=== PATIENT | female | born 1960 | race Caucasian/White ===

== ENCOUNTER → 2017-03-31 | Day surgery (SDC) | payer OTHER ==
[~2017-03-31] VITALS: Ht 170.2 cm; Wt 99.8 kg
[~2017-03-31] MED LIST: BENADRYL25 MG PO; FLOMAX0.4 M1 PO; ROBAXIN500 M1 PO; TRAMADOL HCL50 M1 PO; TYLENOL EXTRA500 M2 PO
--- NOTE | 2017-03-31 16:04 | Operative Report ---
Operative/Inv Procedure Report Surgery Date: 03/31/17 Name of Procedure: right ureteroscopy with laser lithotripsy and stone removal with stent placement urethral sling placement Pre-Operative Diagnosis: right UVJ stone with severe hydronephrosis urethral sling placement, cystoscopy Post-Operative Diagnosis: same Estimated Blood Loss: less than 50ml Surgeon/[employer] Specialist: LATANYA BROWNE MD Anesthesia: laryngeal mask airway Implants: vaginal mesh Drains: 6x26cm stent Specimens: stone fragments Complications: none Condition: stable Operative Indication: right UVJ stone with severe hydronephrosis Stress incontinence Operative/Procedure Note Note: This an operative dictation on patient Briseyda Penaloza. She was identified in the holding area consented for right ureteroscopy with laser lithotripsy and stone fragment removal with stent placement and urethral sling with cystoscopy. She was given the risks benefits and alternatives of the surgery. She wished to proceed. All questions were answered. Patient was taken to the operating room placed on the operating table in the supine position. Timeout was performed. Once general anesthesia was obtained with LMA and IV antibiotics were given, she was placed in the dorsal lithotomy position. She was prepped and draped in the standard sterile fashion. Cystoscopy was performed and the bladder was globally inspected. The ureteral orifices were in their normal anatomic position. The right ureter was cannulated with a sensor guidewire. The semirigid ureteroscope was then used to enter the ureter. The distal UVJ stone was immediately identified. It was brown and yellow in color and quite hard in nature. The 400 laser fiber was then used to fragment the stone into multiple smaller pieces. It was quite a large stone. It took some time to fragment it. The 0 tip nitinol basket was then used to remove the stone fragments care not to injure the ureter. Once most of the fragments were removed the 400 laser was needed a second time to fragment the larger stone again. The remaining fragments were removed. The stone fragments were sent for stone analysis. The semirigid was taken up to this UPJ area and no stone fragments were seen. There remainder of the ureter was free of any stone fragments. The remaining guidewire was then used to place a 6 x 26 cm ureteral stent with cystoscopic view. Fluoroscopy was used throughout the case for confirmation. The stent was seen to be in good position. Attention was then turned to the sling portion of the case. A Winkler catheter was placed in the bladder was drained. The Winkler was clamped and placed in the patient's abdomen. Since retractor was placed. An incision was made suburethrally after the 2% lidocaine was infiltrated into the anterior vaginal wall beneath the urethra. The incision was made and vaginal flaps were created taking care not to injure the urethra. The Coloplast UltraSling kit was then opened. This was placed into the obturator fascia with the trochars that are provided. The left side was perforated first followed by the right side. It was tightened with the tightening Prolene loop tilt was seen to be in a non- tension-free manner under the urethra. Area was grossly irrigated with bacitracin irrigation. Incision was created closed using running locking 3-0 Vicryl suture. There was no mesh in the vaginal fornices. Winkler catheter was removed and a cystoscopy was performed. There was no mesh appreciated and the bladder or the urethra. Bladder was emptied. The stent was seen to be in good position still. Vaginal packing impregnated with bacitracin ointment was placed into the vaginal vault. Sponge and needle count were correct end of the case. Patient was cleaned of the Betadine solution. Patient tolerated the procedure well. Findings: No stones remaining in the right ureter after the right 1cm stone was fragmented and removed no mesh in the bladder, urethra or vaginal fornices Discharge Disposition: PACU
--- NOTE | 2017-03-31 18:58 | RADIOLOGY REPORT ---
EXAMINATION: INTRAOPERATIVE FLUOROSCOPIC GUIDANCE AND AP ABDOMEN CLINICAL INFORMATION: Right lithotripsy and stent insertion in operating room. TECHNIQUE: Fluoroscopic time was utilized in the OR for Dr. Valera. Fluoroscopic images were obtained in AP projections. FINDINGS: 2 images obtained during placement of a right ureteral stent. Detail is limited. Please correlate with the procedural documentation. FLUOROSCOPY TIME: 2.4 seconds of fluoroscopic time was utilized for the entirety of this examination. NUMBER OF IMAGES: 2 IMPRESSION: Intraoperative guidance as described above.
== END ==
LOC: STS 02:59
DX: N13.2 Hydronephrosis with renal and ureteral calculous obstruction (principal); N39.3 Stress incontinence (female) (male); G40.909 Epilepsy, unspecified, not intractable, without status epilepticus; I10 Essential (primary) hypertension; K27.9 Peptic ulcer, site unspecified, unspecified as acute or chronic, without hemorrhage or perforation; R10.9 Unspecified abdominal pain
CPT/HCPCS: 74000; C1771; C2617; J0690; J2250